=== PATIENT | male | born 1935 | race African-American/Black ===

== ENCOUNTER 2016-10-19 11:21 | Inpatient (IN) | payer OTHER ==
[~2016-10-19] VITALS: Ht 177.8 cm; Wt 54.4 kg
[2016-10-19] VITALS (11 sets, daily range): BP systolic 83–133; BP diastolic 44–104
--- NOTE | ~2016-10-19 | EKG ---
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
--- NOTE | ~2016-10-19 | O ---
[facility] [place] [address] OPERATIVE REPORT Name: KARINEMYRON HORN Room #: 238-P [facility] IN M.R.#: [id number] Admission: 10/19/16 Attend Phys: Joe Silva DO Discharge: 10/19/16 Date of : 34 Report #: [id number] THIS REPORT FOR: //name// CC: Joe FRANCIS PRIMARY PHYSICIAN: Bruna Francis M.D. REFERRING PHYSICIAN: Joe Silva DO. REASON FOR PROCEDURE: Acute respiratory failure. PROCEDURE: Emergent diagnostic bronchoscopy. CLINICAL HISTORY: An 81-year-old -[place] male who was admitted with presumed pneumonia and respiratory failure. I was called to see the patient as they were not able to suction through the previously placed tracheostomy tube. An emergent bronchoscopy was performed as the patient is in moderate respiratory distress. The current tracheostomy tube is a Bivona #4. Bronchoscope was not able to be introduced past. We do not have a pediatric bronchoscope at the present time. The old tracheostomy tube was then withdrawn. The patient was placed on 100% nonrebreather. A flexible portable bronchoscope was then introduced to the tracheostomy site. Proximal part of the tracheostomy site appears to be patent. However, there appears to be obstruction in the mid tracheal area. It appears to be granulation tissue. There is air flow on the sides of the wall. The tissue mass does not appear to be completely obstructing the trachea. It appears to encompass about 90% of the tracheal lumen. I was not able to pass the bronchoscope past the slit-like opening on the side of the tracheal wall. A #4 Shiley cuff trach was then placed over the bronchoscope. The tip of the trach was then positioned above the granulation tissue. The bronchoscope was withdrawn. The tracheostomy tube was then secured with Velcro ties. Vital signs and saturation throughout the procedure was relatively stable. The patient was tachycardic before the procedure and remains tachycardic. He is also tachypneic with respiratory rate around 30s. Saturation, however, is adequate close to 100% on 100% FiO2. IMPRESSION: Mid tracheal obstruction, probable granulation tissue. RECOMMENDATIONS: Given severe respiratory distress, the patient will benefit from further evaluation of the mid tracheal abnormalities. Laser therapy may be indicated. [address] [address] OPERATIVE REPORT Name: MYRON MILTON Room #: 238-P [facility] IN M.R.#: [id number] Admission: 10/19/16 Attend Phys: Joe Silva DO Discharge: 10/19/16 Date of : 34 Report #: [id number] Discussed with transfer team at [facility] along with the admitting physician and lockstitch lining setter. They are all in agreement in accepting the patient for evaluation and treatment. The patient will be transferred to [facility] later today. SECOND PROCEDURE PROCEDURE: Tracheostomy tube change. CLINICAL HISTORY: An 81-year-old white male with past history of chronic respiratory failure with chronic trach, now with difficulty suctioning through the trach. DESCRIPTION OF PROCEDURE: Currently, the patient is in distress with tachypnea and hypoxia. RT was not able to suction through the trach. We then emergently pulled the old trach. A #4 Shiley cuff trach was placed over the bronchoscope. This was secured above the presumed area of tracheal obstruction. Vital signs and saturations were adequate. <ELECTRONICALLY SIGNED> By: Gabo Collier MD 10/23/16 1350 1026 1105 Gabo Collier MD /nt
--- NOTE | ~2016-10-19 | HC ---
[facility] [place] [address] CONSULTATION Name: KARINEMYRON JUSTINA Room #: 238-P [facility] IN M.R.#: [id number] Admission: 10/19/16 Attend Phys: Justina Silva DO Discharge: 10/19/16 Date of : 34 Report #: [id number] THIS REPORT FOR: //name// CC: Justina FRANCIS DATE OF SERVICE: 10/19/2016 INFECTIOUS DISEASE CONSULTATION DATE OF ADMISSION: 10/19/2016. DATE OF CONSULTATION: 10/19/2016. ATTENDING PHYSICIAN: Justina Silva DO. REASON FOR CONSULTATION: Antibiotic management, pneumonia. HISTORY OF PRESENT ILLNESS: This is an 81-year-old -Citizen Of [place] man, resident of local [facility], [facility], apparently was discharged from [facility] 2 days ago after having suffered a fall. Apparently, the patient developed respiratory distress. A chest x-ray obtained yesterday at the [facility] and another one obtained here today revealed right basilar atelectasis, infiltrate. The patient has a chronic ongoing tracheostomy and unable to give much of any information. All information gathered from review of records. PAST MEDICAL HISTORY: Parkinson disease, chronic encephalopathy, chronic tracheostomy, respiratory failure, previous episode of pneumonia. SOCIAL HISTORY: Resident of a local [facility]. Unable to obtain. FAMILY HISTORY: Unable to obtain. REVIEW OF SYSTEMS: Unable to obtain. PHYSICAL EXAMINATION: GENERAL: Elderly -Citizen Of [place] man present in following vital signs. VITAL SIGNS: Temperature 97.6, pulse 92, respirations 32, BP 112/60, and O2 saturation 95% on tracheal mask, 10 liters oxygen per minute. Apparently, the patient's tracheostomy not functioning properly and to be exchanged by during bronchoscopy procedure. HEENMT: Head normocephalic, atraumatic. Pupils equal. NECK: Tracheostomy in place. LUNGS: Few rhonchi. HEART: S1, S2. [facility] [address] [address] CONSULTATION Name: KARINEMYRONCarlton HORN Room #: 238-P [facility] IN [facility].#: [id number] Admission: 10/19/16 Attend Phys: Justina Silva DO Discharge: 10/19/16 Date of : 34 Report #: [id number] ABDOMEN: Gastrostomy tube in place, left upper quadrant; soft; no masses or megaly. GENITALIA AND RECTAL: Deferred. EXTREMITIES: Atrophy of muscle groups. No clubbing, cyanosis. NEUROLOGIC: Unable to evaluate. LABORATORY DATA: Sodium 170, potassium 3.1, chloride 131, BUN 29, creatinine 1, glucose 188. White blood cell count 18,000; hemoglobin 10.1; platelets 307,000. White blood cell count differential, 93% neutrophils. Urinalysis 1+ protein, 3+ blood, positive nitrite. Microscopic exam revealed 6-15 wbc's per HPF, 3-10 rbc's per HPF, many bacteria. ABG, pH 7.49, pCO2 of 34, pO2 of 73, bicarbonate 26 and lactate normal. These set of gases on FIO2 90%. MICROBIOLOGY DATA: Pending. RADIOLOGY EVALUATION: Tracheostomy, question cardiomegaly. Right basilar infiltrate undetermined stage and whether it was present previously or not, undecided. Need to receive records from [facility]. EKG, ectopic atrial tachycardia and ventricular premature contractions, nonspecific ST-T changes. ASSESSMENT: 1. Possible right lower lobe pneumonia. 2. Chronic tracheostomy, respiratory failure, malfunctioning tracheostomy. 3. Severe hypernatremia. 4. Electrolyte imbalance. 5. Parkinson's disease, then possible dementia. 6. Altered mental status. 7. Leukocytosis. SUGGESTIONS: Until records from [facility] available, we will treat for possible healthcare-associated pneumonia. Obviously, the patient has abnormal urinalysis, might have UTI. For time being, we will continue coverage with Zosyn, vancomycin, and add Levaquin as well . Dr. Silva, thank you for requesting my suggestions in the care of your patient. <ELECTRONICALLY SIGNED> By: Clark Abbott MD 10/20/16 1215 1600 0032 Clark Abbott MD /nt
--- NOTE | ~2016-10-19 | EKG ---
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
--- NOTE | ~2016-10-19 | HC ---
[facility] [place] [address] CONSULTATION Name: KARINEMYRONCarlton HORN Room #: 238-P [facility] IN M.R.#: [id number] Admission: 10/19/16 Attend Phys: Joe Silva DO Discharge: 10/19/16 Date of : 34 Report #: [id number] THIS REPORT FOR: //name// CC: Joe FRANCIS REFERRING PHYSICIAN: Dr. Silva. REASON FOR REFERRAL: Acute respiratory failure. HISTORY OF PRESENT ILLNESS: The patient is an 81-year-old -[place] African male who was brought to the emergency room from [facility] with increasing dyspnea. A pulmonary consultation was requested. History is somewhat limited as the patient is not able to provide history. Daughter is able to provide some history. According to the daughter, the patient has been hospitalized for several months. Few months ago, he was at [facility] and was treated for pneumonia. He developed chronic respiratory failure necessitating a tracheostomy. He was then subsequently transferred to the mcc at [facility]. About a week ago, he fell and he was transferred to [facility]. He was evaluated, treated and was subsequently discharged back to [facility]. Earlier today, the patient was noted to be more short of breath, and was brought to the emergency room. Please see comments below. PAST MEDICAL HISTORY: Notable for long history of Parkinson's, resulting in debility; according to the daughter, he has been primarily wheelchair-bound; history of brain tumor, undergoing a WINDOW GLAZIER shunt; he has had a PEG tube placed along with a tracheostomy tube placed several months ago. He has been treated for UTI and pneumonia in the past. ALLERGIES: None noted. MEDICATIONS: From the mcc list incomplete. FAMILY HISTORY: Noncontributory. SOCIAL HISTORY: Notable for tobacco use in the past. REVIEW OF SYSTEMS: Notable for progressive generalized debility, weakness, being bedridden and wheelchair-bound, marked malnutrition, and muscle atrophy. PHYSICAL EXAMINATION: GENERAL: His eyes are open, but does not respond. He is tachypneic, tachycardiac. [facility] [address] [place] [address] CONSULTATION Name: MYRON MILTON Room #: 238-P [facility] IN M.R.#: [id number] Admission: 10/19/16 Attend Phys: Joe Silva DO Discharge: 10/19/16 Date of : 34 Report #: [id number] VITAL SIGNS: Temperature is 97.6 degrees Fahrenheit, pulse is 92, respiratory rate is 30, blood pressure is 100/65 mmHg, saturation 95%. HEENT: Normocephalic and atraumatic. NECK: Status post tracheostomy. CHEST: Breath sounds are decreased bilaterally, coarse breath sounds. CARDIOVASCULAR: No obvious murmurs or gallop. Pulses are 2+/4+ bilaterally. ABDOMEN: Soft, no masses felt. Positive for PEG tube placement in the upper quadrants. GENITOURINARY AND RECTAL: Deferred. EXTREMITIES: No cyanosis or clubbing or edema. MUSCULOSKELETAL: Notable for marked muscle atrophy. NEUROLOGIC: The patient presently is not responsive. Eyes are open. LABORATORY DATA: Portable chest x-ray shows mild hazy infiltrates seen in the right lung field. The tracheostomy tube is noted. Sodium 117, potassium 3.1, chloride 131, CO2 is 30, BUN is 29, creatinine is 1.0. WBC 18,000, hemoglobin 7.1, platelets are normal. They are noticed significant bandemia. IMPRESSION: 1. Acute on chronic hypoxic respiratory failure in this 81-year-old -[place] male. He has a history of Parkinson's, history of brain tumor, undergone WINDOW GLAZIER shunt. Etiology is probably related to granulation issue in the trachea. Please see comments below. Pneumonia is also suspected with infiltrates seen in the right lung field. 2. Chronic respiratory failure due to recent pneumonia. There is a tracheostomy that was placed. A new trach has been placed just now with Shiley #4. 3. Parkinson's with progressive debility and weakness. 4. History of brain tumor with an apparent WINDOW GLAZIER shunt. 5. Generalized debility, weakness and malnutrition. 6. Hyponatremia. Suspect due to dehydration. Also, has hypokalemia. RECOMMENDATION AND DISCUSSION: The patient underwent an emergent bronchoscopy showing probable upper airway obstruction involving the trachea. This bronchoscopy was done as was not able to suction to the trach. The flexible fiberoptic bronchoscope was not able to go past the tissue obstruction that seems to communicate with the tracheostomy site. A #4 Shiley trach was placed. Saturation is adequate so far. Discussed with at [facility]. After discussion, they are in agreement of accepting the patient for possible upper airway obstruction, need for possible laser, etc. This has been discussed with the patient's daughter. He voices understanding. Overall condition is critical. [facility] [address] [place] [address] CONSULTATION Name: MYRON MILTON Room #: 238-P [facility] IN M.R.#: [id number] Admission: 10/19/16 Attend Phys: Joe Silva DO Discharge: 10/19/16 Date of : 34 Report #: [id number] Thank you for this consultation. <ELECTRONICALLY SIGNED> By: Gabo Collier MD 10/23/16 1350 1648 0159 Gabo Collier MD /nt
[2016-10-19 12:06] LABS: ABSOLUTE NEUTROPHILS 16.7 thou/uL (1.4-8.2); HEMATOCRIT 33.1 % (42.0-52.0); HEMOGLOBIN 10.1 gm/dL (14.0-18.0); LYMPHOCYTES 4.2 % (24.0-44.0); MCH 25.2 pg (26.0-34.0); MCHC 30.4 g/dL (28.0-37.0); MCV 82.8 fL (80.0-100.0); MONOCYTES 2.8 % (1.0-8.0); PLATELET COUNT 307 thou/uL (150-400); RBC 3.99 mil/uL (4.50-6.00); RDW 21.6 % (10.5-14.5)
[2016-10-19 12:09] LABS: CALCIUM 9.4 mg/dL (8.5-10.1); MANUAL DIFF NO; POTASSIUM 3.1 mmol/L (3.5-5.1)
[2016-10-19 12:26] LABS: ABG SAMPLE TYPE ARTERIAL; BE(vivo) 2.9 mmol/L (-2 to +3); HCO3 26.1 mmol/L (22.0-26.0); LACTATE 1.82 mmol/L (0.5-2.0); O2(CT) 14.1 mL/dL (15.0-23.0); O2Hb 93.4 % (92.0-98.0); PCO2 34.8 mmHg (35.0-45.0); PO2 73.4 mmHg (80.0-100.0); pH 7.493 (7.360-7.450); sO2 95.9 % (92.0-98.0); tCO2 27.2 mmol/L (24.0-30.0)
[2016-10-19 12:27] LABS: STICK SITE R.BRACHIAL
[2016-10-19 12:28] LABS: ABG COMMENT PT ON TS
[2016-10-19 13:41] LABS: URINE BILIRUBIN NEGATIVE (Negative); URINE BLOOD 3+ (Negative); URINE COLOR YELLOW; URINE GLUCOSE-RANDOM* NEGATIVE (Negative); URINE KETONES NEGATIVE (Negative); URINE LEUKOCYTES-REFLEX 1+ (Negative); URINE PROTEIN (DIPSTICK) 1+ (Negative); URINE SPECIFIC GRAVITY 1.015 (1.003-1.035)
[2016-10-19 13:46] LABS: SQUAMOUS None Seen /LPF (0-3); URINE RBC 3-10 Few /HPF (0-2); URINE WBC-REFLEX 6-15 Few /HPF (0-5)
[2016-10-19 13:47] LABS: CASTS None Seen /LPF (None Seen); CRYSTALS None Seen /LPF (None Seen)
[2016-10-19 15:55] LABS: CALCIUM 9.2 mg/dL (8.5-10.1); CREATININE 1.2 mg/dL (0.7-1.3); POTASSIUM 3.4 mmol/L (3.5-5.1)
[2016-10-19 16:51] LABS: ABG SAMPLE TYPE ARTERIAL; BE(vivo) 0.6 mmol/L (-2 to +3); HCO3 22.3 mmol/L (22.0-26.0); O2(CT) 14.7 mL/dL (15.0-23.0); PCO2 27.2 mmHg (35.0-45.0); PO2 64.9 mmHg (80.0-100.0); pH 7.532 (7.360-7.450); sO2 95.1 % (92.0-98.0); tCO2 23.2 mmol/L (24.0-30.0)
[2016-10-19 16:52] LABS: STICK SITE L.RADIAL
== END 2016-10-19 18:07 | disposition short-term general hospital (02) | DRG 871 ==
LOC: ER 11:21 → EROBS 12:46 → ICU 12:46
PROVIDERS: Emergency Medicine; Family Medicine; Internal Medicine Pulmonary Disease
PROC: 0BJ08ZZ Inspection of Tracheobronchial Tree, Via Natural or Artificial Opening Endoscopic (ICD-10-PCS; principal; 2016-10-19)
PROC: 0B21XFZ Change Tracheostomy Device in Trachea, External Approach (ICD-10-PCS; 2016-10-19)
DX: A41.9 Sepsis, unspecified organism (principal); J96.02 Acute respiratory failure with hypercapnia; E87.0 Hyperosmolality and hypernatremia; E87.1 Hypo-osmolality and hyponatremia; G20 Parkinson's disease; E87.8 Other disorders of electrolyte and fluid balance, not elsewhere classified; D72.829 Elevated white blood cell count, unspecified; Z87.440 Personal history of urinary (tract) infections; Z93.0 Tracheostomy status; Z87.891 Personal history of nicotine dependence; Z87.01 Personal history of pneumonia (recurrent)
CPT/HCPCS: 10078